=== PATIENT | female | born 1965 | race Caucasian/White ===

== ENCOUNTER 2019-05-18 16:04 | Emergency (ER) | payer BC ==
[~2019-05-18] VITALS: Ht 157.5 cm; Wt 68.9 kg
[2019-05-18 16:38] VITALS: BP_SYST 141
--- NOTE | 2019-05-18 16:46 | NUR ---
Patient triaged and placed in waiting room. VSS and patient appears in no acute distress at this time. Accompanied by self, awaiting available bed, and MD notified of need for MSE.
[2019-05-18] MEDS ORDERED: ONDANSETRON HCL 4 MG/2 ML VIAL IVP ONE ×2 (18:15→19:30)
[2019-05-18] MEDS ORDERED: NACL 0.9% 1,000 ML IV ONE (18:15)
[2019-05-18] MEDS ORDERED: KETOROLAC TROMETHAMINE 30 MG VIAL IVP ONE (18:15)
[2019-05-18 18:45] LABS: BASOPHILS % (AUTO) 0.3 % (0.0-2.0); EOSINOPHILS # (AUTO) 0.1 K/uL (0.0-0.4); EOSINOPHILS % (AUTO) 1.5 % (0.0-4.0); HEMATOCRIT 43.8 % (36-48); LYMPHOCYTES # (AUTO) 1.5 K/uL (1.0-5.5); MEAN CORPUSCULAR HEMOGLOBIN 34 pg (27-31); MEAN CORPUSCULAR HGB CONC 34 % (32-36); MEAN CORPUSCULAR VOLUME 98 fL (79.0-98.0); MONOCYTES # (AUTO) 0.4 K/uL (0.0-1.0); MONOCYTES % (AUTO) 6.5 % (1.7-9.3); NEUTROPHILS # (AUTO) 4.3 K/uL (1.8-7.7); NEUTROPHILS % (AUTO) 67.7 % (40.0-70.0); PLATELET COUNT (AUTO) 321 K/uL (130-430); RED BLOOD CELL COUNT(AUTO) 4.45 MIL/uL (4.2-6.2); RED CELL DISTRIBUTION WIDTH 13.3 % (9.0-15.0); WHITE BLOOD COUNT (AUTO) 6.4 K/uL (4.8-10.8)
[2019-05-18 19:02] LABS: PROTHROMBIN TIME 10.5 SECS (9.5-12.5)
--- NOTE | 2019-05-18 19:10 | NUR ---
Patient to ER bed 4 to gown for evaluation. Side rails up.
--- NOTE | 2019-05-18 19:10 | NUR ---
Pt c/o Left flank pain x 4 days. Denies N/V/D, no dysuria.
--- NOTE | 2019-05-18 19:14 | NUR ---
ER Dr. Molina at bedside examining patient.
[2019-05-18] MEDS ORDERED: MORPHINE 4 MG/ML INJ. SYRINGE IVP ONE (19:30)
[2019-05-18 19:32] LABS: ALBUMIN 3.7 g/dL (3.4-4.8); CALCIUM 9.2 mg/dL (8.4-11.0); CREATININE 0.61 mg/dL (0.55-1.30); TOTAL BILIRUBIN 0.4 mg/dL (0.0-1.0)
[2019-05-18 19:38] LABS: POTASSIUM 3.7 mmol/L (3.5-5.1)
--- NOTE | 2019-05-18 20:30 | NUR ---
Pt verbalizes improvement in pain. No needs verbalized at this time.
[2019-05-18 21:10] VITALS: BP_SYST 132
--- NOTE | 2019-05-18 21:10 | NUR ---
Patient given written and verbal discharge instructions and verbalizes understanding. ER MD discussed with patient the results and treatment provided. Patient in stable condition. ID arm band removed. IV catheter removed intact and dressing applied, no active bleeding. Rx of Byron and Motrin given. Patient educated on pain management and to follow up with PMD. Pain Scale 3/10. Opportunity for questions provided and answered. Medication side effect fact sheet provided.
== END 2019-05-18 21:10 | disposition home or self-care (01) ==
LOC: SED 16:04
DX: R07.1 Chest pain on breathing (principal)
CPT/HCPCS: 36415; 71045; 74176; 80053; 82150; 82550; 83605; 83690; 84484; 85025; 85610; 85730; 87040; 96374; 96375; 99284; J2270; J2405; J7030